=== PATIENT | female | born 1955 | race Caucasian/White ===

== ENCOUNTER 2021-12-03 08:38 | Inpatient (IN) ==
[2021-12-03] MEDS ORDERED: methylPREDNISolone 125 MG/2 ML VIAL IVP ONE (08:51)
[2021-12-03] MEDS ORDERED: Ipratropium/Albuterol Neb 3 ML IH ONE ×2 (08:51→11:19)
[2021-12-03 09:14] LABS: Basophils % 0.2 %; Eosinophils % 0.1 %; Hematocrit 34.7 % (35.3-44.9); Hemoglobin 10.9 g/dL (11.5-15.4); Immature Granulocytes % 0.7 % (0-4); Lymphocytes # 1.6 K/mcL (0.6-4.6); Lymphocytes % 16.5 %; Mean Corpuscular HGB Conc 31.4 g/dL (31.6-35.5); Mean Corpuscular Hemoglobin 26.1 pg (28.0-33.3); Mean Corpuscular Volume 83.2 fL (83.0-100.0); Mean Platelet Volume 10.3 fL (9.4-12.4); Monocytes # 0.9 K/mcL (0.0-1.3); Neutrophils # 7.1 K/mcL (1.6-8.9); Platelet Count 250 K/mcL (140-400); Red Blood Count 4.17 M/mcL (3.82-4.97); Red Cell Distribution Width 16.5 % (11.5-14.5); Segmented Neutrophils % 73.5 %; White Blood Count 9.7 K/mcL (4.3-11.1)
[2021-12-03 09:22] LABS: INR 1.1; Prothrombin Time 12.4 Seconds (9.4-12.1)
[2021-12-03 09:23] LABS: ABG Base Excess 3 mEq/L (-2 to 3); ABG HCO3 28 mEq/L (21-27); ABG Oxygen Saturation 97 % (95-98); ABG PCO2 44 mmHg (35-45); ABG PH 7.41 pH Units (7.32-7.45); ABG PO2 89 mmHg (85-104); ABG TCO2 29 mEq/L (20-26)
[2021-12-03 09:33] LABS: Calcium 8.7 mg/dL (8.6-10.3); Potassium 4.3 mEq/L (3.5-5.1); Troponin I < 0.03 ng/mL (< 0.04)
[2021-12-03 09:34] LABS: Alanine Aminotransferase 29 Units/L (7-52); Albumin 3.8 g/dL (3.5-5.7); Albumin/Globulin Ratio 1.2 (1.1-2.2); Alkaline Phosphatase 75 Units/L (34-104); Aspartate Amino Transferase 22 Units/L (13-39); Bilirubin,Direct 0.1 mg/dL (0.0-0.2); Bilirubin,Indirect 0.6 mg/dL (0.0-1.0); Bilirubin,Total 0.7 mg/dL (0.3-1.0); Globulin 3.2 g/dL (2.4-3.5)
[2021-12-03] MEDS ORDERED: Isovue-370 500 ML BOTTLE IVP ONE (09:40)
[2021-12-03] MEDS ORDERED: 0.9 % Sodium Chloride 250 ML IVC ONE (09:40)
[2021-12-03] MEDS ORDERED: Nitroglycerin 0.4 MG TAB.SUBL SL PRN (11:55)
[2021-12-03] MEDS ORDERED: Ondansetron ODT 4 MG TAB.RAPDIS SL PRN (11:58)
[2021-12-03] MEDS ORDERED: Naloxone 0.4 MG/ML INJ IVP PRN (11:58)
[2021-12-03] MEDS ORDERED: Azithromycin 250 MG TABLET PO ONE (12:00)
[2021-12-03] MEDS ORDERED: Albumin 25% 25gram/100mL 25 GM/100 ML IV.SOLN IVPB ONE (12:01)
[2021-12-03] MEDS ORDERED: *HR* Dextrose 50 % in Water (Syg) 50 ML SYRINGE IVP PRN (16:11)
[2021-12-03] MEDS ORDERED: D5% in Water 1,000 ML IVC PRN (16:11)
[2021-12-03] MEDS ORDERED: Dextrose 4 GM Chewable Tablets PO PRN ×2 (16:11)
[2021-12-03] MEDS: Insulin LISPRO 300 UNITS/3 ML VIAL SUBQ SCH (17:22)
[2021-12-03] MEDS: MethylPREDNISolone 40 MG/ML VIAL IVP SCH (17:24)
[2021-12-03] MEDS: Melatonin 3 MG TABLET PO PRN (21:35)
[2021-12-03] MEDS: Magnesium Oxide 400 MG TABLET PO SCH (21:35)
[2021-12-03] MEDS: Benzonatate 100 MG CAPSULE PO PRN (21:36)
[2021-12-03] MEDS: Budesonide/Formoterol 160/4.5 1 PUFF INH IH SCH (22:28)
[2021-12-04 00:41] LABS: Adenovirus Not Detected (Not Detect); Bordetella Pertussis Not Detected (Not Detect); Chlamydophila pneumoniae Not Detected (Not Detect); Coronavirus 229E Not Detected (Not Detect); Coronavirus HKU1 Not Detected (Not Detect); Coronavirus NL63 Not Detected (Not Detect); Coronavirus OC43 Not Detected (Not Detect); Human Metapneumovirus DETECTED (Not Detect); Human Rhinovirus/Enterovirus Not Detected (Not Detect); Influenza A Subtype 2009 H1 Not Detected (Not Detect); Influenza B Not Detected (Not Detect); Mycoplasma pneumoniae Not Detected (Not Detect); Parainfluenza Virus 1 Not Detected (Not Detect); Parainfluenza Virus 2 Not Detected (Not Detect); Parainfluenza Virus 3 Not Detected (Not Detect); Parainfluenza Virus 4 Not Detected (Not Detect); Respiratory Syncytial Virus Not Detected (Not Detect); SARS-CoV-2 Not Detected (Not Detect)
[2021-12-04] MEDS: MethylPREDNISolone 40 MG/ML VIAL IVP SCH ×4 (00:41→21:48)
[2021-12-04] MEDS: Ipratropium/Albuterol Neb 3 ML IH PRN ×4 (02:52→22:43)
[2021-12-04] MEDS: *HR* Enoxaparin 40 MG/0.4 ML SYRINGE SQ SCH (06:20)
[2021-12-04 07:30] LABS: Basophils % 0.1 %; Hematocrit 33.3 % (35.3-44.9); Hemoglobin 10.5 g/dL (11.5-15.4); Immature Granulocytes % 1.2 % (0-4); Lymphocytes # 0.7 K/mcL (0.6-4.6); Lymphocytes % 9.4 %; Mean Corpuscular HGB Conc 31.5 g/dL (31.6-35.5); Mean Corpuscular Hemoglobin 26.1 pg (28.0-33.3); Mean Corpuscular Volume 82.8 fL (83.0-100.0); Mean Platelet Volume 10.7 fL (9.4-12.4); Monocytes # 0.4 K/mcL (0.0-1.3); Monocytes % 5.5 %; Neutrophils # 6.5 K/mcL (1.6-8.9); Platelet Count 240 K/mcL (140-400); Red Blood Count 4.02 M/mcL (3.82-4.97); Red Cell Distribution Width 16.2 % (11.5-14.5); Segmented Neutrophils % 83.8 %; White Blood Count 7.7 K/mcL (4.3-11.1)
[2021-12-04 07:55] LABS: BUN/Creatinine Ratio 33 (6-26); Blood Urea Nitrogen 33 mg/dL (8-23); Carbon Dioxide 28 mEq/L (23-29); Chloride 94 mEq/L (98-107); Glucose 396 mg/dL (70-105); Magnesium 2.8 mg/dL (1.6-2.6); Osmolality,Calculated 294 (280-300); Potassium 4.7 mEq/L (3.5-5.1); Sodium 130 mEq/L (136-145); eGFR For African Americans > 60 (> 60); eGFR For Non-African Americans 55 (> 60)
[2021-12-04] MEDS: Budesonide/Formoterol 160/4.5 1 PUFF INH IH SCH ×2 (09:14→22:38)
[2021-12-04] MEDS: Aspirin Enteric Coated 81 MG Tablet PO SCH (09:39)
[2021-12-04] MEDS: Benzonatate 100 MG CAPSULE PO PRN (09:39)
[2021-12-04] MEDS: Magnesium Oxide 400 MG TABLET PO SCH ×2 (09:39→21:48)
[2021-12-04] MEDS: Metoprolol XL (24 HR) Succ 25 MG TAB.ER.24H PO SCH (09:39)
[2021-12-04] MEDS: *HR* Amiodarone 200 MG TABLET PO SCH (09:39)
[2021-12-04] MEDS: Azithromycin 250 MG TABLET PO SCH (09:39)
[2021-12-04] MEDS: Insulin LISPRO 300 UNITS/3 ML VIAL SUBQ SCH ×5 (09:40→21:57)
[2021-12-04] MEDS ORDERED: *HR* Dextrose 50 % in Water (Syg) 50 ML SYRINGE IVP PRN (10:29)
[2021-12-04] MEDS ORDERED: Dextrose 4 GM Chewable Tablets PO PRN ×2 (10:29)
[2021-12-04] MEDS ORDERED: D5% in Water 1,000 ML IVC PRN (10:29)
[2021-12-04] MEDS: Furosemide 20 MG TABLET PO SCH (13:59)
[2021-12-04] MEDS: Melatonin 3 MG TABLET PO PRN (21:48)
[2021-12-05] MEDS: Benzonatate 100 MG CAPSULE PO PRN (02:32)
[2021-12-05] MEDS: Ipratropium/Albuterol Neb 3 ML IH PRN ×4 (02:40→21:50)
[2021-12-05] MEDS: MethylPREDNISolone 40 MG/ML VIAL IVP SCH ×3 (05:43→22:23)
[2021-12-05] MEDS: *HR* Enoxaparin 40 MG/0.4 ML SYRINGE SQ SCH (05:43)
[2021-12-05] MEDS: Budesonide/Formoterol 160/4.5 1 PUFF INH IH SCH ×2 (08:27→21:51)
[2021-12-05] MEDS: Insulin LISPRO 300 UNITS/3 ML VIAL SUBQ SCH ×7 (09:21→22:24)
[2021-12-05] MEDS: *HR* Metformin 500 MG TABLET PO SCH (09:24)
[2021-12-05] MEDS: Aspirin Enteric Coated 81 MG Tablet PO SCH (09:24)
[2021-12-05] MEDS: Metoprolol XL (24 HR) Succ 25 MG TAB.ER.24H PO SCH (09:26)
[2021-12-05] MEDS: Magnesium Oxide 400 MG TABLET PO SCH ×2 (09:26→22:22)
[2021-12-05] MEDS: Furosemide 20 MG TABLET PO SCH ×2 (09:27→17:05)
[2021-12-05] MEDS: Azithromycin 250 MG TABLET PO SCH (09:27)
[2021-12-05] MEDS: *HR* Amiodarone 200 MG TABLET PO SCH (09:27)
[2021-12-05 10:37] LABS: Basophils % 0.1 %; Hematocrit 34.7 % (35.3-44.9); Hemoglobin 10.8 g/dL (11.5-15.4); Lymphocytes # 0.6 K/mcL (0.6-4.6); Lymphocytes % 3.3 %; Mean Corpuscular HGB Conc 31.1 g/dL (31.6-35.5); Mean Corpuscular Hemoglobin 26.2 pg (28.0-33.3); Mean Corpuscular Volume 84.2 fL (83.0-100.0); Mean Platelet Volume 10.5 fL (9.4-12.4); Monocytes # 0.5 K/mcL (0.0-1.3); Monocytes % 2.8 %; Platelet Count 240 K/mcL (140-400); Red Blood Count 4.12 M/mcL (3.82-4.97); Red Cell Distribution Width 16.5 % (11.5-14.5); Segmented Neutrophils % 92.8 %; White Blood Count 18.1 K/mcL (4.3-11.1)
[2021-12-05 10:56] LABS: Calcium 9.5 mg/dL (8.6-10.3); Potassium 5.5 mEq/L (3.5-5.1)
[2021-12-05 10:59] LABS: Neutrophils # 16.8 K/mcL (1.6-8.9)
[2021-12-05] MEDS: Acetylcysteine 10% 10 ML VIAL IH SCH ×2 (15:10→21:50)
[2021-12-05] MEDS ORDERED: Insulin DETEMIR 100 UNIT/ML X5UNITS SUBQ SCH (21:00)
[2021-12-05] MEDS: Insulin DETEMIR 100 UNIT/ML X5UNITS SUBQ SCH (22:23)
[2021-12-06] MEDS: Ipratropium/Albuterol Neb 3 ML IH PRN ×4 (04:22→22:43)
[2021-12-06] MEDS: Acetylcysteine 10% 10 ML VIAL IH SCH ×4 (04:22→22:43)
[2021-12-06] MEDS: *HR* Enoxaparin 40 MG/0.4 ML SYRINGE SQ SCH (05:23)
[2021-12-06 06:22] LABS: Basophils % 0.2 %; Eosinophils % 0.1 %; Hematocrit 35.5 % (35.3-44.9); Hemoglobin 10.9 g/dL (11.5-15.4); Immature Granulocytes % 1.1 % (0-4); Lymphocytes # 1.1 K/mcL (0.6-4.6); Lymphocytes % 6.7 %; Mean Corpuscular HGB Conc 30.7 g/dL (31.6-35.5); Mean Corpuscular Volume 84.7 fL (83.0-100.0); Mean Platelet Volume 10.6 fL (9.4-12.4); Monocytes # 0.7 K/mcL (0.0-1.3); Monocytes % 4.1 %; Platelet Count 250 K/mcL (140-400); Red Blood Count 4.19 M/mcL (3.82-4.97); Red Cell Distribution Width 16.7 % (11.5-14.5); Segmented Neutrophils % 87.8 %
[2021-12-06 06:23] LABS: Neutrophils # 14.9 K/mcL (1.6-8.9)
[2021-12-06 06:55] LABS: BUN/Creatinine Ratio 41 (6-26); Blood Urea Nitrogen 42 mg/dL (8-23); Calcium 9.6 mg/dL (8.6-10.3); Carbon Dioxide 31 mEq/L (23-29); Chloride 101 mEq/L (98-107); Glucose 166 mg/dL (70-105); Magnesium 2.7 mg/dL (1.6-2.6); Osmolality,Calculated 302 (280-300); Potassium 5.4 mEq/L (3.5-5.1); Sodium 139 mEq/L (136-145); eGFR For African Americans > 60 (> 60); eGFR For Non-African Americans 54 (> 60)
[2021-12-06] MEDS: Aspirin Enteric Coated 81 MG Tablet PO SCH (08:39)
[2021-12-06] MEDS: *HR* Metformin 500 MG TABLET PO SCH (08:39)
[2021-12-06] MEDS: Azithromycin 250 MG TABLET PO SCH (08:39)
[2021-12-06] MEDS: *HR* Amiodarone 200 MG TABLET PO SCH (08:39)
[2021-12-06] MEDS: Furosemide 20 MG TABLET PO SCH ×2 (08:39→17:14)
[2021-12-06] MEDS: Metoprolol XL (24 HR) Succ 25 MG TAB.ER.24H PO SCH (08:39)
[2021-12-06] MEDS: Insulin DETEMIR 100 UNIT/ML X5UNITS SUBQ SCH ×2 (08:39→22:19)
[2021-12-06] MEDS: Magnesium Oxide 400 MG TABLET PO SCH ×2 (08:40→20:48)
[2021-12-06] MEDS: Insulin LISPRO 300 UNITS/3 ML VIAL SUBQ SCH ×7 (08:40→20:23)
[2021-12-06] MEDS: Budesonide/Formoterol 160/4.5 1 PUFF INH IH SCH ×2 (10:33→22:43)
[2021-12-06] MEDS: MethylPREDNISolone 40 MG/ML VIAL IVP SCH ×2 (11:48→22:23)
[2021-12-06] MEDS: Melatonin 3 MG TABLET PO PRN (20:48)
[2021-12-07] MEDS: Acetylcysteine 10% 10 ML VIAL IH SCH (04:09)
[2021-12-07] MEDS: Ipratropium/Albuterol Neb 3 ML IH PRN ×3 (04:09→22:34)
[2021-12-07] MEDS: *HR* Enoxaparin 40 MG/0.4 ML SYRINGE SQ SCH (05:28)
[2021-12-07 07:54] LABS: Hematocrit 34.5 % (35.3-44.9); Hemoglobin 10.7 g/dL (11.5-15.4); Mean Corpuscular Hemoglobin 25.9 pg (28.0-33.3); Mean Corpuscular Volume 83.5 fL (83.0-100.0); Mean Platelet Volume 10.5 fL (9.4-12.4); Platelet Count 258 K/mcL (140-400); Red Blood Count 4.13 M/mcL (3.82-4.97); Red Cell Distribution Width 16.5 % (11.5-14.5); White Blood Count 12.4 K/mcL (4.3-11.1)
[2021-12-07 08:18] LABS: BUN/Creatinine Ratio 38 (6-26); Blood Urea Nitrogen 37 mg/dL (8-23); Calcium 9.1 mg/dL (8.6-10.3); Carbon Dioxide 31 mEq/L (23-29); Chloride 98 mEq/L (98-107); Glucose 275 mg/dL (70-105); Osmolality,Calculated 300 (280-300); Potassium 4.9 mEq/L (3.5-5.1); Sodium 136 mEq/L (136-145); eGFR For African Americans > 60 (> 60); eGFR For Non-African Americans 57 (> 60)
[2021-12-07] MEDS: predniSONE 20 MG TABLET PO SCH (09:12)
[2021-12-07] MEDS: *HR* Metformin 500 MG TABLET PO SCH (09:12)
[2021-12-07] MEDS: Magnesium Oxide 400 MG TABLET PO SCH ×2 (09:12→21:25)
[2021-12-07] MEDS: *HR* Amiodarone 200 MG TABLET PO SCH (09:12)
[2021-12-07] MEDS: Metoprolol XL (24 HR) Succ 25 MG TAB.ER.24H PO SCH (09:12)
[2021-12-07] MEDS: Aspirin Enteric Coated 81 MG Tablet PO SCH (09:12)
[2021-12-07] MEDS: Azithromycin 250 MG TABLET PO SCH (09:12)
[2021-12-07] MEDS: Furosemide 20 MG TABLET PO SCH ×2 (09:13→16:31)
[2021-12-07] MEDS: Insulin LISPRO 300 UNITS/3 ML VIAL SUBQ SCH ×7 (09:13→21:26)
[2021-12-07] MEDS: Insulin DETEMIR 100 UNIT/ML X5UNITS SUBQ SCH ×2 (09:14→21:25)
[2021-12-07] MEDS: Budesonide/Formoterol 160/4.5 1 PUFF INH IH SCH ×2 (11:05→22:33)
[2021-12-07 21:12] VITALS: RESP 16
[2021-12-07] MEDS: Melatonin 3 MG TABLET PO PRN (21:24)
[2021-12-08] MEDS: *HR* Enoxaparin 40 MG/0.4 ML SYRINGE SQ SCH (05:30)
[2021-12-08] MEDS ORDERED: Acetaminophen 325 MG TABLET PO PRN (06:00)
[2021-12-08] MEDS: Insulin LISPRO 300 UNITS/3 ML VIAL SUBQ SCH ×4 (07:22→11:17)
[2021-12-08] MEDS: Magnesium Oxide 400 MG TABLET PO SCH (08:44)
[2021-12-08] MEDS: Aspirin Enteric Coated 81 MG Tablet PO SCH (08:44)
[2021-12-08] MEDS: Metoprolol XL (24 HR) Succ 25 MG TAB.ER.24H PO SCH (08:44)
[2021-12-08] MEDS: *HR* Metformin 500 MG TABLET PO SCH (08:44)
[2021-12-08] MEDS: *HR* Amiodarone 200 MG TABLET PO SCH (08:44)
[2021-12-08] MEDS: predniSONE 20 MG TABLET PO SCH (08:44)
[2021-12-08] MEDS: Furosemide 20 MG TABLET PO SCH (08:44)
[2021-12-08] MEDS: Insulin DETEMIR 100 UNIT/ML X5UNITS SUBQ SCH (08:45)
[2021-12-08] MEDS: Budesonide/Formoterol 160/4.5 1 PUFF INH IH SCH (09:59)
[2021-12-08] MEDS: Ipratropium/Albuterol Neb 3 ML IH PRN (10:00)
[2021-12-08 10:28] VITALS: BP 120/60; PULSE 66; TEMP 97.6
[2021-12-08] MEDS ORDERED: Spironolactone 25 MG TABLET PO SCH (11:30)
[2021-12-08 14:27] VITALS: O2SAT 97
[2021-12-08] MEDS ORDERED: Furosemide 40 MG TABLET PO SCH (17:00)
== END 2021-12-08 12:58 | disposition home or self-care (01) | DRG 190 ==
LOC: EMEROOPIK 08:38 → INPPIK 08:38
PROVIDERS: ADMIT Internal Medicine; ATTEND Internal Medicine

== ENCOUNTER 2022-04-13 16:50 | Inpatient (IN) ==
[2022-04-13] MEDS ORDERED: Ketorolac 30 MG/ML VIAL IVP ONE (16:57)
[2022-04-13 17:27] LABS: Basophils % 0.2 %; Eosinophils # 0.1 K/mcL (0.0-0.6); Eosinophils % 0.9 %; Hematocrit 41.1 % (35.3-44.9); Hemoglobin 13.1 g/dL (11.5-15.4); Immature Granulocytes % 0.5 % (0-4); Lymphocytes # 2.1 K/mcL (0.6-4.6); Lymphocytes % 17.1 %; Mean Corpuscular HGB Conc 31.9 g/dL (31.6-35.5); Mean Corpuscular Hemoglobin 26.5 pg (28.0-33.3); Mean Corpuscular Volume 83.2 fL (83.0-100.0); Mean Platelet Volume 11.7 fL (9.4-12.4); Monocytes # 0.9 K/mcL (0.0-1.3); Monocytes % 7.4 %; Neutrophils # 9.2 K/mcL (1.6-8.9); Platelet Count 210 K/mcL (140-400); Red Blood Count 4.94 M/mcL (3.82-4.97); Red Cell Distribution Width 14.2 % (11.5-14.5); Segmented Neutrophils % 73.9 %; White Blood Count 12.4 K/mcL (4.3-11.1)
[2022-04-13 17:40] LABS: BUN/Creatinine Ratio 24 (6-26); Blood Urea Nitrogen 16 mg/dL (8-23); Carbon Dioxide 28 mEq/L (23-29); Chloride 101 mEq/L (98-107); Glucose 368 mg/dL (70-105); Osmolality,Calculated 298 (280-300); Potassium 3.6 mEq/L (3.5-5.1); Sodium 136 mEq/L (136-145); eGFR For African Americans > 60 (> 60); eGFR For Non-African Americans > 60 (> 60)
[2022-04-13] MEDS ORDERED: Nitroglycerin 0.4 MG TAB.SUBL SL PRN (18:12)
[2022-04-13] MEDS ORDERED: Naloxone 0.4 MG/ML INJ IVP PRN (18:12)
[2022-04-13] MEDS ORDERED: *HR* Dextrose 50 % in Water (Syg) 50 ML SYRINGE IVP PRN (18:37)
[2022-04-13] MEDS ORDERED: Dextrose Gel 15 GM/37.5 ML TUBE PO PRN ×2 (18:37)
[2022-04-13] MEDS ORDERED: D5% in Water 1,000 ML IVC PRN (18:37)
[2022-04-13] MEDS: Acetaminophen 325 MG TABLET PO SCH (22:11)
[2022-04-13] MEDS: Magnesium Oxide 400 MG TABLET PO SCH (22:11)
[2022-04-13] MEDS: Insulin LISPRO 300 UNITS/3 ML VIAL SUBQ SCH (22:13)
[2022-04-13] MEDS: Budesonide/Formoterol 160/4.5 1 PUFF INH IH SCH (22:21)
[2022-04-14] MEDS: Piperacillin/Tazobactam 3.375 GM in 0.9 % Sodium Chloride Mini Bag 100 ML IVPB SCH ×3 (00:06→16:21)
[2022-04-14 07:23] LABS: Basophils % 0.3 %; Eosinophils # 0.2 K/mcL (0.0-0.6); Eosinophils % 1.4 %; Hemoglobin 12.7 g/dL (11.5-15.4); Immature Granulocytes % 0.8 % (0-4); Lymphocytes # 2.2 K/mcL (0.6-4.6); Lymphocytes % 18.3 %; Mean Corpuscular Hemoglobin 26.2 pg (28.0-33.3); Mean Corpuscular Volume 84.5 fL (83.0-100.0); Mean Platelet Volume 12.2 fL (9.4-12.4); Neutrophils # 8.6 K/mcL (1.6-8.9); Platelet Count 187 K/mcL (140-400); Red Blood Count 4.85 M/mcL (3.82-4.97); Red Cell Distribution Width 14.3 % (11.5-14.5); Segmented Neutrophils % 71.2 %; White Blood Count 12.1 K/mcL (4.3-11.1)
[2022-04-14] MEDS: Magnesium Oxide 400 MG TABLET PO SCH ×2 (07:36→21:43)
[2022-04-14] MEDS: Acetaminophen 325 MG TABLET PO SCH ×3 (07:36→21:42)
[2022-04-14] MEDS: Insulin LISPRO 300 UNITS/3 ML VIAL SUBQ SCH ×4 (07:37→21:45)
[2022-04-14 07:48] LABS: BUN/Creatinine Ratio 24 (6-26); Blood Urea Nitrogen 17 mg/dL (8-23); Calcium 8.6 mg/dL (8.6-10.3); Carbon Dioxide 30 mEq/L (23-29); Chloride 101 mEq/L (98-107); Glucose 318 mg/dL (70-105); Osmolality,Calculated 300 (280-300); Potassium 4.2 mEq/L (3.5-5.1); Sodium 138 mEq/L (136-145); eGFR For African Americans > 60 (> 60); eGFR For Non-African Americans > 60 (> 60)
[2022-04-14 08:45] LABS: Platelet Clumps Few (Not Present); Platelet Estimate Normal (Normal)
[2022-04-14] MEDS: Budesonide/Formoterol 160/4.5 1 PUFF INH IH SCH ×2 (08:51→22:23)
[2022-04-14] MEDS: *HR* OxyCODONE/APAP 5/325 TABLET PO PRN ×2 (09:21→21:43)
[2022-04-14] MEDS: Aspirin Enteric Coated 81 MG Tablet PO SCH (09:21)
[2022-04-14] MEDS: Torsemide 20 MG TABLET PO SCH (09:21)
[2022-04-14] MEDS: Spironolactone 25 MG TABLET PO SCH (09:21)
[2022-04-14] MEDS: lisinopriL 5 MG TABLET PO SCH (09:21)
[2022-04-14] MEDS: *HR* Amiodarone 200 MG TABLET PO SCH (09:21)
[2022-04-14] MEDS: *HR* Enoxaparin 40 MG/0.4 ML SYRINGE SQ SCH (13:39)
[2022-04-15] MEDS: Piperacillin/Tazobactam 3.375 GM in 0.9 % Sodium Chloride Mini Bag 100 ML IVPB SCH ×3 (00:42→14:33)
[2022-04-15] MEDS: *HR* Enoxaparin 40 MG/0.4 ML SYRINGE SQ SCH (04:49)
[2022-04-15] MEDS ORDERED: Ondansetron ODT 4 MG TAB.RAPDIS SL PRN (07:45)
[2022-04-15] MEDS: Budesonide/Formoterol 160/4.5 1 PUFF INH IH SCH ×2 (08:04→22:14)
[2022-04-15] MEDS: Colchicine 0.6 MG TABLET PO SCH ×2 (09:42→20:37)
[2022-04-15] MEDS: Aspirin Enteric Coated 81 MG Tablet PO SCH (09:42)
[2022-04-15] MEDS: Acetaminophen 325 MG TABLET PO SCH ×3 (09:43→20:36)
[2022-04-15] MEDS: Torsemide 20 MG TABLET PO SCH (09:43)
[2022-04-15] MEDS: Spironolactone 25 MG TABLET PO SCH (09:43)
[2022-04-15] MEDS: Magnesium Oxide 400 MG TABLET PO SCH ×2 (09:44→20:37)
[2022-04-15] MEDS: *HR* Amiodarone 200 MG TABLET PO SCH (09:45)
[2022-04-15] MEDS: lisinopriL 5 MG TABLET PO SCH (09:46)
[2022-04-15] MEDS: Insulin LISPRO 300 UNITS/3 ML VIAL SUBQ SCH ×4 (09:47→20:35)
[2022-04-15 10:19] LABS: Hematocrit 43.6 % (35.3-44.9); Hemoglobin 13.3 g/dL (11.5-15.4); Mean Corpuscular HGB Conc 30.5 g/dL (31.6-35.5); Mean Corpuscular Hemoglobin 26.1 pg (28.0-33.3); Mean Corpuscular Volume 85.5 fL (83.0-100.0); Mean Platelet Volume 11.8 fL (9.4-12.4); Platelet Count 214 K/mcL (140-400); Red Cell Distribution Width 14.2 % (11.5-14.5); White Blood Count 12.3 K/mcL (4.3-11.1)
[2022-04-15] MEDS: *HR* OxyCODONE/APAP 5/325 TABLET PO PRN (14:29)
[2022-04-15] MEDS: predniSONE 20 MG TABLET PO SCH (18:19)
[2022-04-15 23:59] VITALS: RESP 18
[2022-04-16] MEDS: Piperacillin/Tazobactam 3.375 GM in 0.9 % Sodium Chloride Mini Bag 100 ML IVPB SCH ×3 (00:48→15:29)
[2022-04-16] MEDS: *HR* Enoxaparin 40 MG/0.4 ML SYRINGE SQ SCH (04:41)
[2022-04-16 06:27] LABS: Hemoglobin 13.4 g/dL (11.5-15.4); Mean Corpuscular HGB Conc 30.5 g/dL (31.6-35.5); Mean Corpuscular Hemoglobin 26.1 pg (28.0-33.3); Mean Corpuscular Volume 85.8 fL (83.0-100.0); Mean Platelet Volume 12.3 fL (9.4-12.4); Platelet Count 208 K/mcL (140-400); Red Blood Count 5.13 M/mcL (3.82-4.97); Red Cell Distribution Width 14.1 % (11.5-14.5); White Blood Count 9.5 K/mcL (4.3-11.1)
[2022-04-16 06:49] LABS: Calcium 8.9 mg/dL (8.6-10.3); Potassium 4.8 mEq/L (3.5-5.1)
[2022-04-16] MEDS: Insulin LISPRO 300 UNITS/3 ML VIAL SUBQ SCH (07:27)
[2022-04-16] MEDS: Aspirin Enteric Coated 81 MG Tablet PO SCH (07:28)
[2022-04-16] MEDS: Acetaminophen 325 MG TABLET PO SCH ×2 (07:28→15:28)
[2022-04-16] MEDS: *HR* Amiodarone 200 MG TABLET PO SCH (07:28)
[2022-04-16] MEDS: Spironolactone 25 MG TABLET PO SCH (07:29)
[2022-04-16] MEDS: predniSONE 20 MG TABLET PO SCH (07:29)
[2022-04-16] MEDS: Colchicine 0.6 MG TABLET PO SCH (07:29)
[2022-04-16] MEDS: lisinopriL 5 MG TABLET PO SCH (07:29)
[2022-04-16] MEDS: Torsemide 20 MG TABLET PO SCH (07:29)
[2022-04-16] MEDS: Magnesium Oxide 400 MG TABLET PO SCH (07:29)
[2022-04-16] MEDS: Budesonide/Formoterol 160/4.5 1 PUFF INH IH SCH (09:48)
[2022-04-16] MEDS ORDERED: Insulin LISPRO 300 UNITS/3 ML VIAL SUBQ SCH (11:11)
[2022-04-16] MEDS ORDERED: Insulin LISPRO 300 UNITS/3 ML VIAL SUBQ STA (11:12)
[2022-04-16 11:25] VITALS: BP 104/63; PULSE 66; TEMP 97.7; O2SAT 96
[2022-04-16] MEDS ORDERED: Insulin DETEMIR 100 UNIT/ML X5UNITS SUBQ SCH (21:00)
== END 2022-04-16 16:36 | disposition home or self-care (01) | DRG 603 ==
LOC: EMEROOPIK 16:50 → INPPIK 16:50
PROVIDERS: ADMIT Internal Medicine; ATTEND Internal Medicine

== ENCOUNTER 2022-04-27 16:27 | Inpatient (IN) ==
[2022-04-27] MEDS ORDERED: Cefepime HCl 1,000 MG in 0.9 % Sodium Chloride Mini Bag 100 ML IVPB ONE (17:50)
[2022-04-27 17:57] LABS: Basophils # 0.1 K/mcL (0.0-0.2); Basophils % 0.3 %; Hematocrit 46.6 % (35.3-44.9); Hemoglobin 15.1 g/dL (11.5-15.4); Immature Granulocytes % 0.7 % (0-4); Lymphocytes # 1.1 K/mcL (0.6-4.6); Lymphocytes % 5.2 %; Mean Corpuscular HGB Conc 32.4 g/dL (31.6-35.5); Mean Corpuscular Hemoglobin 26.8 pg (28.0-33.3); Mean Corpuscular Volume 82.8 fL (83.0-100.0); Monocytes % 4.8 %; Neutrophils # 18.3 K/mcL (1.6-8.9); Platelet Count 233 K/mcL (140-400); Red Blood Count 5.63 M/mcL (3.82-4.97); Red Cell Distribution Width 14.5 % (11.5-14.5); White Blood Count 20.6 K/mcL (4.3-11.1)
[2022-04-27 18:04] LABS: INR 1.1; Prothrombin Time 12.6 Seconds (9.4-12.1)
[2022-04-27 18:16] LABS: Calcium 9.4 mg/dL (8.6-10.3); Potassium 3.8 mEq/L (3.5-5.1)
[2022-04-27] MEDS ORDERED: Naloxone 0.4 MG/ML INJ IVP PRN (18:18)
[2022-04-27] MEDS ORDERED: Nitroglycerin 0.4 MG TAB.SUBL SL PRN (18:19)
[2022-04-27] MEDS ORDERED: *HR* HYDROcodone/Acet 5/325 mg TABLET PO PRN (18:19)
[2022-04-27] MEDS ORDERED: *HR* Dextrose 50 % in Water (Syg) 50 ML SYRINGE IVP PRN (19:04)
[2022-04-27] MEDS ORDERED: D5% in Water 1,000 ML IVC PRN (19:04)
[2022-04-27] MEDS ORDERED: Dextrose Gel 15 GM/37.5 ML TUBE PO PRN ×2 (19:04)
[2022-04-27] MEDS: Budesonide/Formoterol 160/4.5 1 PUFF INH IH SCH (20:19)
[2022-04-27] MEDS ORDERED: Doxycycline 100 MG CAPSULE PO SCH (21:00)
[2022-04-27] MEDS ORDERED: Insulin LISPRO 300 UNITS/3 ML VIAL SUBQ SCH (21:00)
[2022-04-27] MEDS: Acetaminophen 325 MG TABLET PO SCH (22:13)
[2022-04-27] MEDS: Magnesium Oxide 400 MG TABLET PO SCH (22:14)
[2022-04-27] MEDS: *HR* Heparin 5,000 UNIT/ML VIAL SQ SCH (22:21)
[2022-04-28] MEDS ORDERED: Cefepime HCl 2,000 MG in 0.9 % Sodium Chloride 10 ML IVP SCH (03:00)
[2022-04-28] MEDS: *HR* Heparin 5,000 UNIT/ML VIAL SQ SCH ×3 (06:11→20:17)
[2022-04-28 07:51] LABS: Basophils % 0.2 %; Eosinophils % 0.3 %; Hemoglobin 13.9 g/dL (11.5-15.4); Immature Granulocytes % 0.7 % (0-4); Lymphocytes % 15.2 %; Mean Corpuscular HGB Conc 31.6 g/dL (31.6-35.5); Mean Corpuscular Hemoglobin 26.4 pg (28.0-33.3); Mean Corpuscular Volume 83.5 fL (83.0-100.0); Mean Platelet Volume 11.3 fL (9.4-12.4); Monocytes # 0.9 K/mcL (0.0-1.3); Monocytes % 6.9 %; Neutrophils # 10.3 K/mcL (1.6-8.9); Platelet Count 220 K/mcL (140-400); Red Blood Count 5.27 M/mcL (3.82-4.97); Red Cell Distribution Width 14.4 % (11.5-14.5); Segmented Neutrophils % 76.7 %; White Blood Count 13.4 K/mcL (4.3-11.1)
[2022-04-28] MEDS: Budesonide/Formoterol 160/4.5 1 PUFF INH IH SCH ×2 (08:05→21:54)
[2022-04-28 08:31] LABS: Calcium 9.1 mg/dL (8.6-10.3); Potassium 3.5 mEq/L (3.5-5.1)
[2022-04-28] MEDS: *HR* Amiodarone 200 MG TABLET PO SCH (08:35)
[2022-04-28] MEDS: Magnesium Oxide 400 MG TABLET PO SCH ×2 (08:35→20:16)
[2022-04-28] MEDS: Torsemide 20 MG TABLET PO SCH (08:35)
[2022-04-28] MEDS: Insulin LISPRO 300 UNITS/3 ML VIAL SUBQ SCH ×5 (08:36→20:17)
[2022-04-28] MEDS: Acetaminophen 325 MG TABLET PO SCH ×3 (08:36→20:16)
[2022-04-28] MEDS: Spironolactone 25 MG TABLET PO SCH (08:36)
[2022-04-28] MEDS: Aspirin Enteric Coated 81 MG Tablet PO SCH (08:36)
[2022-04-28] MEDS: lisinopriL 5 MG TABLET PO SCH (08:38)
[2022-04-28] MEDS: Cefepime HCl 2,000 MG in 0.9 % Sodium Chloride 10 ML IVP SCH (16:38)
[2022-04-28] MEDS: Insulin DETEMIR 100 UNIT/ML X5UNITS SUBQ SCH (20:17)
[2022-04-29] MEDS: *HR* Heparin 5,000 UNIT/ML VIAL SQ SCH ×3 (05:50→22:04)
[2022-04-29] MEDS: Cefepime HCl 2,000 MG in 0.9 % Sodium Chloride 10 ML IVP SCH ×2 (05:51→17:08)
[2022-04-29] MEDS: Budesonide/Formoterol 160/4.5 1 PUFF INH IH SCH ×2 (09:09→20:26)
[2022-04-29] MEDS: Torsemide 20 MG TABLET PO SCH (09:40)
[2022-04-29] MEDS: Acetaminophen 325 MG TABLET PO SCH ×3 (09:40→22:04)
[2022-04-29] MEDS: lisinopriL 5 MG TABLET PO SCH (09:41)
[2022-04-29] MEDS: Aspirin Enteric Coated 81 MG Tablet PO SCH (09:41)
[2022-04-29] MEDS: Insulin LISPRO 300 UNITS/3 ML VIAL SUBQ SCH ×4 (09:42→20:56)
[2022-04-29] MEDS: Magnesium Oxide 400 MG TABLET PO SCH ×2 (09:42→22:04)
[2022-04-29] MEDS: *HR* Amiodarone 200 MG TABLET PO SCH (09:42)
[2022-04-29] MEDS: Spironolactone 25 MG TABLET PO SCH (09:42)
[2022-04-29] MEDS: Insulin DETEMIR 100 UNIT/ML X5UNITS SUBQ SCH ×2 (09:44→22:05)
[2022-04-29 10:37] LABS: Hematocrit 42.1 % (35.3-44.9); Hemoglobin 13.4 g/dL (11.5-15.4); Mean Corpuscular HGB Conc 31.8 g/dL (31.6-35.5); Mean Corpuscular Hemoglobin 26.7 pg (28.0-33.3); Mean Corpuscular Volume 83.9 fL (83.0-100.0); Mean Platelet Volume 11.6 fL (9.4-12.4); Platelet Count 227 K/mcL (140-400); Red Blood Count 5.02 M/mcL (3.82-4.97); Red Cell Distribution Width 14.6 % (11.5-14.5)
[2022-04-29] MEDS ORDERED: Ondansetron 4 MG/2 ML VIAL IVP PRN (15:03)
[2022-04-29 16:38] VITALS: TEMP 97.8
[2022-04-29] MEDS: 0.9 % Sodium Chloride 1,000 ML IVC SCH (17:09)
[2022-04-30 03:07] VITALS: RESP 18
[2022-04-30] MEDS: Cefepime HCl 2,000 MG in 0.9 % Sodium Chloride 10 ML IVP SCH ×2 (06:25→14:00)
[2022-04-30] MEDS: *HR* Heparin 5,000 UNIT/ML VIAL SQ SCH ×2 (06:26→15:14)
[2022-04-30 06:54] LABS: Hematocrit 41.4 % (35.3-44.9); Hemoglobin 12.9 g/dL (11.5-15.4); Mean Corpuscular HGB Conc 31.2 g/dL (31.6-35.5); Mean Corpuscular Hemoglobin 26.5 pg (28.0-33.3); Mean Platelet Volume 12.2 fL (9.4-12.4); Platelet Count 226 K/mcL (140-400); Red Blood Count 4.87 M/mcL (3.82-4.97); Red Cell Distribution Width 14.5 % (11.5-14.5); White Blood Count 9.6 K/mcL (4.3-11.1)
[2022-04-30 07:13] LABS: BUN/Creatinine Ratio 21 (6-26); Blood Urea Nitrogen 14 mg/dL (8-23); Calcium 9.2 mg/dL (8.6-10.3); Carbon Dioxide 28 mEq/L (23-29); Chloride 101 mEq/L (98-107); Glucose 105 mg/dL (70-105); Osmolality,Calculated 287 (280-300); Potassium 3.9 mEq/L (3.5-5.1); Sodium 138 mEq/L (136-145)
[2022-04-30] MEDS: 0.9 % Sodium Chloride 1,000 ML IVC SCH (07:15)
[2022-04-30 07:38] VITALS: BP 119/66; PULSE 74
[2022-04-30] MEDS: Budesonide/Formoterol 160/4.5 1 PUFF INH IH SCH (09:17)
[2022-04-30 09:19] VITALS: O2SAT 96
[2022-04-30] MEDS: Acetaminophen 325 MG TABLET PO SCH ×2 (09:32→15:14)
[2022-04-30] MEDS: Insulin LISPRO 300 UNITS/3 ML VIAL SUBQ SCH ×3 (09:33→17:07)
[2022-04-30] MEDS: Spironolactone 25 MG TABLET PO SCH (09:33)
[2022-04-30] MEDS: *HR* Amiodarone 200 MG TABLET PO SCH (09:33)
[2022-04-30] MEDS: Magnesium Oxide 400 MG TABLET PO SCH (09:33)
[2022-04-30] MEDS: Torsemide 20 MG TABLET PO SCH (09:33)
[2022-04-30] MEDS: Insulin DETEMIR 100 UNIT/ML X5UNITS SUBQ SCH (09:34)
[2022-04-30] MEDS: Aspirin Enteric Coated 81 MG Tablet PO SCH (11:12)
[2022-04-30] MEDS ORDERED: Insulin DETEMIR 100 UNIT/ML X5UNITS SUBQ SCH (21:00)
== END 2022-04-30 18:22 | disposition other institution (70) | DRG 603 ==
LOC: INPPIK 16:27 → EMEROOPIK 16:27 → INPPIK 20:54
PROVIDERS: ADMIT Internal Medicine; ATTEND Internal Medicine

== ENCOUNTER 2022-04-30 18:28 | Inpatient (IN) ==
[2022-04-30] MEDS ORDERED: *HR* HYDROcodone/Acet 5/325 mg TABLET PO PRN (18:38)
[2022-04-30] MEDS ORDERED: Nitroglycerin 0.4 MG TAB.SUBL SL PRN (18:38)
[2022-04-30] MEDS ORDERED: *HR* Dextrose 50 % in Water (Syg) 50 ML SYRINGE IVP PRN (18:40)
[2022-04-30] MEDS ORDERED: Dextrose Gel 15 GM/37.5 ML TUBE PO PRN ×2 (18:40)
[2022-04-30] MEDS ORDERED: D5% in Water 1,000 ML IVC PRN (18:40)
[2022-04-30] MEDS ORDERED: Ondansetron Oral Soln 2 MG/2.5 ML ORAL.SYG PO PRN (18:41)
[2022-04-30] MEDS: Budesonide/Formoterol 160/4.5 1 PUFF INH IH SCH (20:59)
[2022-04-30] MEDS ORDERED: DEXTROSE IV SCH (21:00)
[2022-04-30] MEDS ORDERED: Insulin DETEMIR 100 UNIT/ML per UNIT SUBQ ONE (21:00)
[2022-04-30] MEDS ORDERED: CEFEPIME HCL IV SCH (21:00)
[2022-04-30] MEDS ORDERED: [UNRECOGNIZED DRUG - OTHER] IV SCH (21:00)
[2022-04-30] MEDS: Magnesium Oxide 400 MG TABLET PO SCH (23:16)
[2022-04-30] MEDS: *HR* Heparin 5,000 UNIT/ML VIAL SQ SCH (23:17)
[2022-04-30] MEDS: Doxycycline 100 MG in 0.9 % Sodium Chloride Mini Bag 100 ML IVPB SCH (23:18)
[2022-04-30] MEDS: Cefepime HCl 1,000 MG in 0.9 % Sodium Chloride 10 ML IVP SCH (23:21)
[2022-04-30] MEDS: Insulin LISPRO 300 UNITS/3 ML VIAL SUBQ SCH (23:25)
[2022-05-01] MEDS ORDERED: Doxycycline 100 MG VIAL IVPB SCH (06:00)
[2022-05-01] MEDS: *HR* Heparin 5,000 UNIT/ML VIAL SQ SCH ×3 (06:49→22:15)
[2022-05-01] MEDS ORDERED: *HR* Metformin 500 MG TABLET PO SCH (08:00)
[2022-05-01] MEDS: Budesonide/Formoterol 160/4.5 1 PUFF INH IH SCH ×2 (08:08→20:44)
[2022-05-01 08:23] LABS: Basophils % 0.5 %; Eosinophils # 0.3 K/mcL (0.0-0.6); Eosinophils % 4.1 %; Hematocrit 45.9 % (35.3-44.9); Hemoglobin 13.6 g/dL (11.5-15.4); Immature Granulocytes % 0.8 % (0-4); Lymphocytes % 31.1 %; Mean Corpuscular HGB Conc 29.6 g/dL (31.6-35.5); Mean Corpuscular Hemoglobin 26.8 pg (28.0-33.3); Mean Corpuscular Volume 90.5 fL (83.0-100.0); Mean Platelet Volume 11.5 fL (9.4-12.4); Monocytes # 0.4 K/mcL (0.0-1.3); Monocytes % 6.4 %; Neutrophils # 3.7 K/mcL (1.6-8.9); Platelet Count 227 K/mcL (140-400); Red Blood Count 5.07 M/mcL (3.82-4.97); Red Cell Distribution Width 14.8 % (11.5-14.5); Segmented Neutrophils % 57.1 %; White Blood Count 6.5 K/mcL (4.3-11.1)
[2022-05-01 08:39] LABS: BUN/Creatinine Ratio 22 (6-26); Blood Urea Nitrogen 16 mg/dL (8-23); Calcium 9.1 mg/dL (8.6-10.3); Carbon Dioxide 22 mEq/L (23-29); Chloride 103 mEq/L (98-107); Glucose 131 mg/dL (70-105); Osmolality,Calculated 285 (280-300); Potassium 4.4 mEq/L (3.5-5.1); Sodium 136 mEq/L (136-145)
[2022-05-01] MEDS: Cefepime HCl 1,000 MG in 0.9 % Sodium Chloride 10 ML IVP SCH ×2 (09:48→22:15)
[2022-05-01] MEDS: Doxycycline 100 MG in 0.9 % Sodium Chloride Mini Bag 100 ML IVPB SCH ×2 (09:49→22:17)
[2022-05-01] MEDS: Insulin LISPRO 300 UNITS/3 ML VIAL SUBQ SCH ×4 (09:49→22:44)
[2022-05-01] MEDS: Insulin DETEMIR 100 UNIT/ML X5UNITS SUBQ SCH ×2 (09:49→22:15)
[2022-05-01] MEDS: Magnesium Oxide 400 MG TABLET PO SCH ×2 (09:50→22:14)
[2022-05-01] MEDS: Aspirin Enteric Coated 81 MG Tablet PO SCH (09:51)
[2022-05-01] MEDS: Colchicine 0.6 MG TABLET PO SCH (09:51)
[2022-05-01] MEDS: *HR* Amiodarone 200 MG TABLET PO SCH (09:51)
[2022-05-01] MEDS: Torsemide 20 MG TABLET PO SCH (09:51)
[2022-05-01] MEDS: Spironolactone 25 MG TABLET PO SCH (09:51)
[2022-05-01] MEDS: Acetaminophen 325 MG TABLET PO PRN (13:35)
[2022-05-01] MEDS ORDERED: Ondansetron ODT 4 MG TAB.RAPDIS PO PRN (16:15)
[2022-05-02] MEDS: *HR* Heparin 5,000 UNIT/ML VIAL SQ SCH ×3 (05:08→21:31)
[2022-05-02] MEDS: Budesonide/Formoterol 160/4.5 1 PUFF INH IH SCH ×2 (07:54→21:53)
[2022-05-02] MEDS: Aspirin Enteric Coated 81 MG Tablet PO SCH (08:56)
[2022-05-02] MEDS: Magnesium Oxide 400 MG TABLET PO SCH ×2 (08:56→21:29)
[2022-05-02] MEDS: Colchicine 0.6 MG TABLET PO SCH (08:56)
[2022-05-02] MEDS: Spironolactone 25 MG TABLET PO SCH (08:57)
[2022-05-02] MEDS: *HR* Amiodarone 200 MG TABLET PO SCH (08:57)
[2022-05-02] MEDS: Cefepime HCl 1,000 MG in 0.9 % Sodium Chloride 10 ML IVP SCH ×2 (08:57→21:29)
[2022-05-02] MEDS: Doxycycline 100 MG in 0.9 % Sodium Chloride Mini Bag 100 ML IVPB SCH ×2 (08:57→21:30)
[2022-05-02] MEDS: Torsemide 20 MG TABLET PO SCH (08:57)
[2022-05-02] MEDS: Insulin LISPRO 300 UNITS/3 ML VIAL SUBQ SCH ×4 (08:58→21:28)
[2022-05-02] MEDS: Insulin DETEMIR 100 UNIT/ML X5UNITS SUBQ SCH ×2 (08:58→21:29)
[2022-05-03] MEDS: *HR* Heparin 5,000 UNIT/ML VIAL SQ SCH ×3 (05:28→22:11)
[2022-05-03] MEDS: Budesonide/Formoterol 160/4.5 1 PUFF INH IH SCH ×2 (08:47→21:37)
[2022-05-03] MEDS: Magnesium Oxide 400 MG TABLET PO SCH ×2 (09:28→21:52)
[2022-05-03] MEDS: Torsemide 20 MG TABLET PO SCH (09:28)
[2022-05-03] MEDS: Aspirin Enteric Coated 81 MG Tablet PO SCH (09:28)
[2022-05-03] MEDS: *HR* Amiodarone 200 MG TABLET PO SCH (09:28)
[2022-05-03] MEDS: Spironolactone 25 MG TABLET PO SCH (09:29)
[2022-05-03] MEDS: Doxycycline 100 MG in 0.9 % Sodium Chloride Mini Bag 100 ML IVPB SCH ×2 (09:29→22:00)
[2022-05-03] MEDS: Cefepime HCl 1,000 MG in 0.9 % Sodium Chloride 10 ML IVP SCH ×2 (09:30→21:29)
[2022-05-03] MEDS: Colchicine 0.6 MG TABLET PO SCH (09:33)
[2022-05-03] MEDS: Insulin LISPRO 300 UNITS/3 ML VIAL SUBQ SCH ×5 (09:41→21:57)
[2022-05-03] MEDS: Insulin DETEMIR 100 UNIT/ML X5UNITS SUBQ SCH ×2 (09:43→21:57)
[2022-05-03] MEDS: Acetaminophen 325 MG TABLET PO PRN (09:50)
[2022-05-04] MEDS: *HR* Heparin 5,000 UNIT/ML VIAL SQ SCH ×3 (05:45→21:02)
[2022-05-04] MEDS: Insulin LISPRO 300 UNITS/3 ML VIAL SUBQ SCH ×4 (07:53→20:34)
[2022-05-04] MEDS: Budesonide/Formoterol 160/4.5 1 PUFF INH IH SCH ×2 (07:57→20:35)
[2022-05-04] MEDS: Spironolactone 25 MG TABLET PO SCH (09:06)
[2022-05-04] MEDS: *HR* Amiodarone 200 MG TABLET PO SCH (09:06)
[2022-05-04] MEDS: Colchicine 0.6 MG TABLET PO SCH (09:06)
[2022-05-04] MEDS: Magnesium Oxide 400 MG TABLET PO SCH ×2 (09:06→21:02)
[2022-05-04] MEDS: Torsemide 20 MG TABLET PO SCH (09:07)
[2022-05-04] MEDS: Doxycycline 100 MG in 0.9 % Sodium Chloride Mini Bag 100 ML IVPB SCH ×2 (09:08→21:00)
[2022-05-04] MEDS: Cefepime HCl 1,000 MG in 0.9 % Sodium Chloride 10 ML IVP SCH ×2 (09:10→20:55)
[2022-05-04] MEDS: Insulin DETEMIR 100 UNIT/ML X5UNITS SUBQ SCH ×2 (09:46→21:06)
[2022-05-04] MEDS: Aspirin Enteric Coated 81 MG Tablet PO SCH (09:52)
[2022-05-04] MEDS: Acetaminophen 325 MG TABLET PO PRN (12:05)
[2022-05-05] MEDS: *HR* Heparin 5,000 UNIT/ML VIAL SQ SCH ×3 (04:53→20:38)
[2022-05-05 07:15] LABS: Hematocrit 45.2 % (35.3-44.9); Hemoglobin 14.3 g/dL (11.5-15.4); Mean Corpuscular HGB Conc 31.6 g/dL (31.6-35.5); Mean Corpuscular Hemoglobin 26.8 pg (28.0-33.3); Mean Corpuscular Volume 84.8 fL (83.0-100.0); Mean Platelet Volume 10.9 fL (9.4-12.4); Platelet Count 304 K/mcL (140-400); Red Blood Count 5.33 M/mcL (3.82-4.97); Red Cell Distribution Width 14.4 % (11.5-14.5); White Blood Count 8.3 K/mcL (4.3-11.1)
[2022-05-05] MEDS: Budesonide/Formoterol 160/4.5 1 PUFF INH IH SCH ×2 (08:08→19:40)
[2022-05-05 08:13] LABS: Calcium 9.6 mg/dL (8.6-10.3); Potassium 4.2 mEq/L (3.5-5.1)
[2022-05-05] MEDS: Insulin LISPRO 300 UNITS/3 ML VIAL SUBQ SCH ×4 (10:53→20:39)
[2022-05-05] MEDS: levoFLOXacin 750 MG TABLET PO SCH (10:53)
[2022-05-05] MEDS: Insulin DETEMIR 100 UNIT/ML X5UNITS SUBQ SCH (10:53)
[2022-05-05] MEDS: Aspirin Enteric Coated 81 MG Tablet PO SCH (10:54)
[2022-05-05] MEDS: Torsemide 20 MG TABLET PO SCH (10:54)
[2022-05-05] MEDS: Spironolactone 25 MG TABLET PO SCH (10:54)
[2022-05-05] MEDS: Colchicine 0.6 MG TABLET PO SCH (10:54)
[2022-05-05] MEDS: Magnesium Oxide 400 MG TABLET PO SCH ×2 (10:54→20:38)
[2022-05-05] MEDS: *HR* Amiodarone 200 MG TABLET PO SCH (10:55)
[2022-05-05] MEDS: Doxycycline 100 MG in 0.9 % Sodium Chloride Mini Bag 100 ML IVPB SCH (10:59)
[2022-05-05] MEDS: Cefepime HCl 1,000 MG in 0.9 % Sodium Chloride 10 ML IVP SCH (11:05)
[2022-05-05] MEDS ORDERED: *HR* Heparin 5,000 UNIT/ML VIAL ONE (20:34)
[2022-05-05] MEDS ORDERED: Magnesium Oxide 400 MG TABLET ONE (20:35)
[2022-05-05] MEDS ORDERED: Insulin DETEMIR 100 UNIT/ML per UNIT SUBQ ONE (21:00)
[2022-05-06] MEDS: *HR* Heparin 5,000 UNIT/ML VIAL SQ SCH ×2 (05:09→15:37)
[2022-05-06 06:48] VITALS: BP 133/73; PULSE 71; TEMP 97.6; O2SAT 96
[2022-05-06 07:20] LABS: Basophils % 0.5 %; Eosinophils # 0.2 K/mcL (0.0-0.6); Hematocrit 45.2 % (35.3-44.9); Hemoglobin 14.1 g/dL (11.5-15.4); Immature Granulocytes % 1.2 % (0-4); Lymphocytes # 2.5 K/mcL (0.6-4.6); Lymphocytes % 32.3 %; Mean Corpuscular HGB Conc 31.2 g/dL (31.6-35.5); Mean Corpuscular Hemoglobin 26.5 pg (28.0-33.3); Mean Corpuscular Volume 84.8 fL (83.0-100.0); Mean Platelet Volume 10.6 fL (9.4-12.4); Monocytes # 0.7 K/mcL (0.0-1.3); Monocytes % 8.5 %; Neutrophils # 4.1 K/mcL (1.6-8.9); Platelet Count 304 K/mcL (140-400); Red Blood Count 5.33 M/mcL (3.82-4.97); Red Cell Distribution Width 14.5 % (11.5-14.5); Segmented Neutrophils % 54.5 %; White Blood Count 7.6 K/mcL (4.3-11.1)
[2022-05-06 07:36] LABS: Calcium 9.8 mg/dL (8.6-10.3); Magnesium 2.2 mg/dL (1.6-2.6); Potassium 3.9 mEq/L (3.5-5.1)
[2022-05-06] MEDS: Budesonide/Formoterol 160/4.5 1 PUFF INH IH SCH (08:34)
[2022-05-06 08:36] VITALS: RESP 16
[2022-05-06] MEDS ORDERED: Insulin DETEMIR 100 UNIT/ML X5UNITS SUBQ SCH (09:00)
[2022-05-06] MEDS: Insulin LISPRO 300 UNITS/3 ML VIAL SUBQ SCH ×2 (09:36→11:43)
[2022-05-06] MEDS: *HR* Amiodarone 200 MG TABLET PO SCH (09:37)
[2022-05-06] MEDS: Torsemide 20 MG TABLET PO SCH (09:37)
[2022-05-06] MEDS: levoFLOXacin 750 MG TABLET PO SCH (09:37)
[2022-05-06] MEDS: Spironolactone 25 MG TABLET PO SCH (09:37)
[2022-05-06] MEDS: Aspirin Enteric Coated 81 MG Tablet PO SCH (09:37)
[2022-05-06] MEDS: Colchicine 0.6 MG TABLET PO SCH (09:37)
[2022-05-06] MEDS: Magnesium Oxide 400 MG TABLET PO SCH (09:37)
== END 2022-05-06 16:00 | disposition home or self-care (01) | DRG 603 ==
LOC: SUATTDRO 19:07 → INPPIK 19:07
PROVIDERS: ADMIT Family Medicine; ATTEND Nurse Practitioner

== ENCOUNTER 2022-06-22 07:42 | Inpatient (IN) ==
[2022-06-22 08:37] LABS: Basophils # 0.1 K/mcL (0.0-0.2); Basophils % 0.4 %; Eosinophils # 0.1 K/mcL (0.0-0.6); Eosinophils % 0.7 %; Hematocrit 42.5 % (35.3-44.9); Hemoglobin 13.6 g/dL (11.5-15.4); Immature Granulocytes % 0.5 % (0-4); Lymphocytes # 2.1 K/mcL (0.6-4.6); Mean Corpuscular Hemoglobin 27.5 pg (28.0-33.3); Mean Corpuscular Volume 85.9 fL (83.0-100.0); Mean Platelet Volume 12.6 fL (9.4-12.4); Neutrophils # 11.5 K/mcL (1.6-8.9); Platelet Count 222 K/mcL (140-400); Red Blood Count 4.95 M/mcL (3.82-4.97); Segmented Neutrophils % 77.4 %; White Blood Count 14.9 K/mcL (4.3-11.1)
[2022-06-22 08:43] LABS: Prothrombin Time 11.1 Seconds (9.4-12.1)
[2022-06-22 08:46] LABS: Activated Partial Thrombo Time 28.1 Seconds (26.0-36.0)
[2022-06-22 08:51] LABS: BUN/Creatinine Ratio 19 (6-26); Blood Urea Nitrogen 15 mg/dL (8-23); Carbon Dioxide 30 mEq/L (23-29); Chloride 97 mEq/L (98-107); Glucose 380 mg/dL (70-105); Osmolality,Calculated 296 (280-300); Potassium 4.1 mEq/L (3.5-5.1); Sodium 135 mEq/L (136-145)
[2022-06-22 08:54] LABS: Troponin I < 0.03 ng/mL (< 0.04)
[2022-06-22] MEDS ORDERED: Cefepime HCl 2,000 MG in 0.9 % Sodium Chloride Mini Bag 100 ML IVPB STA (09:03)
[2022-06-22] MEDS ORDERED: D5% in Water 1,000 ML IVC PRN (10:10)
[2022-06-22] MEDS ORDERED: Dextrose Gel 15 GM/37.5 ML TUBE PO PRN ×2 (10:10)
[2022-06-22] MEDS ORDERED: *HR* Dextrose 50 % in Water (Syg) 50 ML SYRINGE IVP PRN (10:10)
[2022-06-22] MEDS ORDERED: Naloxone 0.4 MG/ML INJ IVP PRN (10:14)
[2022-06-22] MEDS ORDERED: Acetaminophen 325 MG TABLET PO PRN (10:19)
[2022-06-22] MEDS ORDERED: Melatonin 3 MG TABLET PO PRN (10:19)
[2022-06-22] MEDS ORDERED: Ondansetron 4 MG/2 ML VIAL IVP PRN (10:19)
[2022-06-22] MEDS ORDERED: levoFLOXacin 750 MG/150 ML 750 MG/150 ML BAG IVPB SCH (11:00)
[2022-06-22] MEDS: *HR* HYDROcodone/Acet 5/325 mg TABLET PO PRN (12:00)
[2022-06-22] MEDS: Insulin LISPRO 300 UNITS/3 ML VIAL SUBQ SCH ×3 (13:20→20:34)
[2022-06-22] MEDS: Bumetanide 1 MG/4 ML VIAL IVP SCH ×2 (13:22→18:42)
[2022-06-22] MEDS ORDERED: Acetaminophen 325 MG TABLET PO SCH (15:00)
[2022-06-22] MEDS: *HR* Heparin 5,000 UNIT/ML VIAL SQ SCH (17:18)
[2022-06-22] MEDS: Magnesium Oxide 400 MG TABLET PO SCH (20:25)
[2022-06-22] MEDS ORDERED: Insulin DETEMIR 100 UNIT/ML X5UNITS SUBQ SCH (21:00)
[2022-06-22] MEDS: Budesonide/Formoterol 160/4.5 1 PUFF INH IH SCH (21:49)
[2022-06-23] MEDS: *HR* Heparin 5,000 UNIT/ML VIAL SQ SCH ×2 (04:24→17:02)
[2022-06-23 07:04] LABS: Basophils % 0.2 %; Eosinophils # 0.1 K/mcL (0.0-0.6); Eosinophils % 0.5 %; Hematocrit 38.4 % (35.3-44.9); Hemoglobin 12.2 g/dL (11.5-15.4); Immature Granulocytes % 0.5 % (0-4); Lymphocytes # 2.1 K/mcL (0.6-4.6); Lymphocytes % 17.4 %; Mean Corpuscular HGB Conc 31.8 g/dL (31.6-35.5); Mean Corpuscular Hemoglobin 27.1 pg (28.0-33.3); Mean Corpuscular Volume 85.3 fL (83.0-100.0); Mean Platelet Volume 11.9 fL (9.4-12.4); Monocytes % 8.6 %; Neutrophils # 8.8 K/mcL (1.6-8.9); Platelet Count 175 K/mcL (140-400); Red Cell Distribution Width 14.7 % (11.5-14.5); Segmented Neutrophils % 72.8 %; White Blood Count 12.1 K/mcL (4.3-11.1)
[2022-06-23 07:29] LABS: Calcium 8.5 mg/dL (8.6-10.3); Potassium 3.7 mEq/L (3.5-5.1)
[2022-06-23] MEDS: *HR* Amiodarone 200 MG TABLET PO SCH (08:17)
[2022-06-23] MEDS: Spironolactone 25 MG TABLET PO SCH (08:17)
[2022-06-23] MEDS: Colchicine 0.6 MG TABLET PO SCH (08:17)
[2022-06-23] MEDS: Magnesium Oxide 400 MG TABLET PO SCH ×2 (08:17→22:09)
[2022-06-23] MEDS: Aspirin Enteric Coated 81 MG Tablet PO SCH (08:17)
[2022-06-23] MEDS: Insulin LISPRO 300 UNITS/3 ML VIAL SUBQ SCH ×4 (08:22→22:10)
[2022-06-23] MEDS: Budesonide/Formoterol 160/4.5 1 PUFF INH IH SCH ×2 (08:57→21:17)
[2022-06-23] MEDS ORDERED: Torsemide 20 MG TABLET PO SCH (09:00)
[2022-06-23] MEDS: Bumetanide 1 MG/4 ML VIAL IVP SCH (09:19)
[2022-06-23] MEDS ORDERED: Insulin DETEMIR 100 UNIT/ML X5UNITS SUBQ SCH (21:00)
[2022-06-23] MEDS: *HR* HYDROcodone/Acet 5/325 mg TABLET PO PRN (22:09)
[2022-06-24] MEDS: *HR* Heparin 5,000 UNIT/ML VIAL SQ SCH ×2 (06:05→16:58)
[2022-06-24] MEDS: Aspirin Enteric Coated 81 MG Tablet PO SCH (07:31)
[2022-06-24] MEDS: Colchicine 0.6 MG TABLET PO SCH (07:31)
[2022-06-24] MEDS: Magnesium Oxide 400 MG TABLET PO SCH ×2 (07:32→23:27)
[2022-06-24] MEDS: Spironolactone 25 MG TABLET PO SCH (07:32)
[2022-06-24] MEDS: *HR* Amiodarone 200 MG TABLET PO SCH (07:32)
[2022-06-24] MEDS: Insulin LISPRO 300 UNITS/3 ML VIAL SUBQ SCH ×3 (07:45→16:58)
[2022-06-24 07:48] LABS: Hematocrit 40.3 % (35.3-44.9); Hemoglobin 12.6 g/dL (11.5-15.4); Mean Corpuscular HGB Conc 31.3 g/dL (31.6-35.5); Mean Corpuscular Hemoglobin 27.1 pg (28.0-33.3); Mean Corpuscular Volume 86.7 fL (83.0-100.0); Mean Platelet Volume 12.2 fL (9.4-12.4); Platelet Count 197 K/mcL (140-400); Red Blood Count 4.65 M/mcL (3.82-4.97); Red Cell Distribution Width 14.9 % (11.5-14.5); White Blood Count 11.4 K/mcL (4.3-11.1)
[2022-06-24 08:22] LABS: Calcium 8.8 mg/dL (8.6-10.3)
[2022-06-24] MEDS: Budesonide/Formoterol 160/4.5 1 PUFF INH IH SCH ×2 (08:48→21:57)
[2022-06-24] MEDS ORDERED: Insulin LISPRO 300 UNITS/3 ML VIAL SUBQ SCH (09:47)
[2022-06-24] MEDS: Insulin DETEMIR 100 UNIT/ML X5UNITS SUBQ SCH ×2 (11:17→23:30)
[2022-06-24] MEDS: Torsemide 20 MG TABLET PO SCH (11:18)
[2022-06-24] MEDS ORDERED: levoFLOXacin 750 MG/150 ML 750 MG/150 ML BAG IVPB SCH (13:00)
[2022-06-24] MEDS: levoFLOXacin 750 MG TABLET PO SCH (15:47)
[2022-06-25] MEDS: *HR* HYDROcodone/Acet 5/325 mg TABLET PO PRN (03:45)
[2022-06-25] MEDS: *HR* Heparin 5,000 UNIT/ML VIAL SQ SCH (06:16)
[2022-06-25 08:04] LABS: Hematocrit 38.7 % (35.3-44.9); Hemoglobin 12.1 g/dL (11.5-15.4); Mean Corpuscular HGB Conc 31.3 g/dL (31.6-35.5); Mean Corpuscular Hemoglobin 27.3 pg (28.0-33.3); Mean Corpuscular Volume 87.2 fL (83.0-100.0); Mean Platelet Volume 12.1 fL (9.4-12.4); Platelet Count 201 K/mcL (140-400); Red Blood Count 4.44 M/mcL (3.82-4.97); Red Cell Distribution Width 14.7 % (11.5-14.5); White Blood Count 9.3 K/mcL (4.3-11.1)
[2022-06-25] MEDS ORDERED: Insulin LISPRO 300 UNITS/3 ML VIAL SUBQ SCH (08:06)
[2022-06-25] MEDS: Torsemide 20 MG TABLET PO SCH (08:13)
[2022-06-25] MEDS: Colchicine 0.6 MG TABLET PO SCH (08:14)
[2022-06-25] MEDS: levoFLOXacin 750 MG TABLET PO SCH (08:14)
[2022-06-25] MEDS: Magnesium Oxide 400 MG TABLET PO SCH (08:14)
[2022-06-25] MEDS: Aspirin Enteric Coated 81 MG Tablet PO SCH (08:14)
[2022-06-25] MEDS: *HR* Amiodarone 200 MG TABLET PO SCH (08:14)
[2022-06-25] MEDS: Spironolactone 25 MG TABLET PO SCH (08:14)
[2022-06-25] MEDS: Insulin DETEMIR 100 UNIT/ML X5UNITS SUBQ SCH (08:18)
[2022-06-25] MEDS: Insulin LISPRO 300 UNITS/3 ML VIAL SUBQ SCH ×2 (08:26→08:28)
[2022-06-25 08:27] LABS: Calcium 8.7 mg/dL (8.6-10.3); Potassium 3.9 mEq/L (3.5-5.1)
[2022-06-25 09:15] LABS: Heparin anti-factor XA UFH < 0.04 IU/mL (0.30-0.70); INR 1.1; Prothrombin Time 11.8 Seconds (9.4-12.1)
[2022-06-25 09:18] LABS: Activated Partial Thrombo Time 27.9 Seconds (26.0-36.0)
[2022-06-25] MEDS: Budesonide/Formoterol 160/4.5 1 PUFF INH IH SCH (09:39)
[2022-06-25 10:17] VITALS: BP 124/80; PULSE 70; RESP 17; TEMP 97.5; O2SAT 95
== END 2022-06-25 12:14 | disposition home health service (06) | DRG 602 ==
LOC: INPPIK 07:42 → EMEROOPIK 07:42 → INPPIK 12:20
PROVIDERS: ADMIT Internal Medicine; ATTEND Internal Medicine